=== PATIENT | male | born 1970 | race Caucasian/White ===

== ENCOUNTER 2021-11-29 05:32 | Emergency (ER) | payer OTHER ==
[2021-11-29] MEDS ORDERED: Ketorolac 30 MG/ML SDV IM ONE (05:57)
[2021-11-29] MEDS ORDERED: Ondansetron 4 MG Tab.DIS PO ONE (06:42)
== END 2021-11-29 08:15 | disposition home or self-care (01) ==
LOC: FB.ED 05:32
DX: N13.2 Hydronephrosis with renal and ureteral calculous obstruction (principal)
CPT/HCPCS: 74176; 81001; 96372; 99283; 99284-25; J1885; Q0162